=== PATIENT | female | born 1935 | race Two or more races ===

== ENCOUNTER 2019-01-11 10:55 | Outpatient (CLI) | payer OTHER | END 2019-01-11 11:08 | disposition home or self-care (01) | LOC: SONOGRAMA 10:55 | DX: N60.11 Diffuse cystic mastopathy of right breast (principal); N60.12 Diffuse cystic mastopathy of left breast; N63.32 Unspecified lump in axillary tail of the left breast ==

== ENCOUNTER 2019-05-28 06:40 | Day surgery (SDC) | payer OTHER | END 2019-05-28 20:25 | disposition home or self-care (01) | LOC: CIR.AMB 06:40 → ADM 08:00 → CIR.AMB 08:00 | DX: D05.12 Intraductal carcinoma in situ of left breast (principal) ==